=== PATIENT | female | born 1955 | race Caucasian/White ===

== ENCOUNTER 2019-08-07 06:47 | Day surgery (SDC) | payer BC ==
[~2019-08-07 06:47] MED LIST: Midazolam 1 MG/ML 2 ML SDV ONE; fentaNYL 100 MCG/2 ML SDV ONE
[2019-08-07] MEDS ORDERED: fentaNYL 100 MCG/2 ML SDV IV ONE ×3 (06:48→08:26)
[2019-08-07] MEDS ORDERED: Midazolam 1 MG/ML 2 ML SDV IV ONE ×3 (06:48→08:27)
[2019-08-07] MEDS ORDERED: Dextrose 5%-0.45% NaCl 1,000 ML IV SCH (08:00)
[2019-08-07] MEDS ORDERED: Sodium Chloride 0.9% 10 ML Syringe FLUSH PRN (08:00)
--- NOTE | 2019-08-07 14:11 | OR ---
DATE: 08/07/2019 PROCEDURE PERFORMED: Esophagogastroduodenoscopy, NBI, and multiple pinch biopsies. INSTRUMENT USED: [id number]-HQ190 Olympus video panendoscope. PREMEDICATIONS: No oral or topical anesthesia used. Fentanyl 100 mcg intravenous, Versed 2 mg intravenous. The procedure was done under pulse oximetry, BP recording, and registered nurse cardiac telemetry. INDICATION: The patient with previous gastric bypass surgery and persistent upper abdominal symptoms, unexplained, and not responsive to medical measures. Esophagogastroduodenoscopy is performed for detection of any active erosive lesions, Frias esophagus, and/or malignancy also under consideration, H. pylori status to be determined, small bowel biopsies to be obtained for CEA disease if indicated, endoscopic hemostasis therapy if needed. PROCEDURE IN DETAIL: The scope was passed with ease. Adequate visualization of the esophagus was made from proximal to distal areas. No upper esophageal lesions identified. No distal esophageal stricture. No uphill or downhill esophageal varices. No Bev-Bravo tear. No evidence of erosive esophagitis by Metcalfe criteria. No esophageal polyp or tumor mass identified. Z-line was seen at around 32 cm distal to the oral verge. Whitish longitudinal healing exudate could be noted in the esophagus, consistent with esophagitis dissecans superficialis. No proximal gastric varices noted. Gastric fundus examination by retroflexion showed no polypoid lesions. The small gastric pouch was free of ulcer, vascular ectasia, or malignant lesions. Surgical site was found to be unremarkable. Visualized loops of the small bowel were unremarkable. Multiple pinch biopsies, 4 in number, were taken from the duodenum and sent for any histopathologic evidence of celiac disease. Multiple pinch biopsies were also taken from the distal and proximal gastric mucosa and sent for PyloriTek test for H. pylori and histopathology. NBI views were obtained of the distal esophagus, photographs were taken, multiple pinch biopsies were obtained and sent for histopathology. No bleeding was noted from any of the visualized areas at the completion of examination. Photographs were taken of the surgical site, gastric fundus, as well as distal esophagus. IMPRESSION: 1. Status post gastric surgery. 2. Esophagitis desiccans superficialis. The patient tolerated the procedure well. [facility] /[id number]
== END 2019-08-07 10:35 | disposition home or self-care (01) ==
LOC: DL.ENDO 06:47
PROVIDERS: ATTEND Internal Medicine Gastroenterology
DX: K20.8 Other esophagitis (principal); I10 Essential (primary) hypertension; E78.5 Hyperlipidemia, unspecified; Z88.5 Allergy status to narcotic agent; Z88.6 Allergy status to analgesic agent; Z88.8 Allergy status to other drugs, medicaments and biological substances; J30.9 Allergic rhinitis, unspecified; Z98.84 Bariatric surgery status; Z83.71 Family history of colonic polyps
CPT/HCPCS: 43239; 87077; J2250; J3010; J7042

== ENCOUNTER 2019-08-11 05:46 | Day surgery (SDC) | payer BC ==
[2019-08-11] MEDS ORDERED: Midazolam 1 MG/ML 2 ML SDV IV ONE ×4 (05:47→06:59)
[2019-08-11] MEDS ORDERED: fentaNYL 100 MCG/2 ML SDV IV ONE ×3 (05:47→06:57)
[2019-08-11] MEDS ORDERED: Dextrose 5%-0.45% NaCl 1,000 ML IV SCH (06:00)
[2019-08-11] MEDS ORDERED: fentaNYL 100 MCG/2 ML SDV ONE (06:15)
[2019-08-11] MEDS ORDERED: Midazolam 1 MG/ML 2 ML SDV ONE (06:15)
--- NOTE | 2019-08-11 08:41 | OR ---
DATE: 08/11/2019 PROCEDURE: Total colonoscopy, cold snare polypectomy, and hemoclip placement. PREMEDICATIONS: Fentanyl 100 mcg Intravenous, Versed 4 mg intravenous, nasal O2 cannula. The procedure was done under pulse oximetry, BP recording, and site monitor. INDICATION: The patient with chronic constipation. Colonoscopic examination is done for detection of any polypoid lesions and removal, endoscopic hemostasis therapy if needed. DESCRIPTION OF PROCEDURE: Initial rectal exam showed external hemorrhoidal tags. Rigid anoscopy was normal. The colonoscope was passed with ease. Few scattered diverticula were noted, more so in the distal left colon. The scope was passed with ease up to the ileocecal area. Photographs were taken of the normal-appearing cecum, identified by landmarks of appendiceal orifice and double-bulged ileocecal folds. No bleeding was noted from any of the visualized areas at the commencement of the examination. There was some amount of fecal material that had to be aspirated. The bowel preparation was adequate, [place] scale 2 in all the regions. No stricture. No vascular ectasia. No large isolated ulcerations seen. No evidence of diffuse inflammatory bowel disease in the form of friability, contact bleeding, or ulcerations. Probing the proximal sides of folds and flexures, using adequate distention and clearing of the stool material, withdrawal of the scope was made. In the mid descending colon, 5 mm sized benign-appearing polyp was noted, NBI views were obtained, photographs were taken. Cold snare polypectomy was done, the polyp tissue was retrieved and sent for histopathology. Resolution hemoclip was placed at the polypectomy site, photographs were taken. No bleeding was noted from any of the visualized areas at the completion of examination. IMPRESSION: 1. External hemorrhoids. 2. Diverticulosis. 3. Descending colon polyp. The patient tolerated the procedure well. [facility] /[id number]
== END 2019-08-11 09:52 | disposition home or self-care (01) ==
LOC: DL.ENDO 05:46
PROVIDERS: ATTEND Internal Medicine Gastroenterology
DX: D12.4 Benign neoplasm of descending colon (principal); K64.4 Residual hemorrhoidal skin tags; K57.30 Diverticulosis of large intestine without perforation or abscess without bleeding; E78.5 Hyperlipidemia, unspecified; I10 Essential (primary) hypertension; Z98.84 Bariatric surgery status; Z90.49 Acquired absence of other specified parts of digestive tract; Z88.5 Allergy status to narcotic agent; Z88.6 Allergy status to analgesic agent; Z88.8 Allergy status to other drugs, medicaments and biological substances
CPT/HCPCS: 45385; J2250; J3010; J7042

== ENCOUNTER 2022-09-07 06:05 | Day surgery (SDC) | payer MEDICARE, BC ==
[2022-09-07] MEDS ORDERED: fentaNYL 100 MCG/2 ML SDV IV ONE (06:06)
[2022-09-07] MEDS ORDERED: Midazolam 1 MG/ML 2 ML SDV IV ONE (06:06)
[2022-09-07] MEDS ORDERED: Midazolam 1 MG/ML 2 ML SDV ONE (06:20)
[2022-09-07] MEDS ORDERED: fentaNYL 100 MCG/2 ML SDV ONE (06:20)
[2022-09-07] MEDS: Dextrose 5%-0.45% NaCl 1,000 ML IV SCH (06:52)
[2022-09-07] MEDS: fentaNYL 100 MCG/2 ML SDV IV ONE ×2 (07:11→07:12)
[2022-09-07] MEDS: Midazolam 1 MG/ML 2 ML SDV IV ONE ×5 (07:12→07:21)
== END 2022-09-07 09:35 | disposition home or self-care (01) ==
LOC: DL.ENDO 06:05
PROVIDERS: ATTEND Internal Medicine Gastroenterology
DX: Z12.11 Encounter for screening for malignant neoplasm of colon (principal); K57.30 Diverticulosis of large intestine without perforation or abscess without bleeding; I10 Essential (primary) hypertension; E78.5 Hyperlipidemia, unspecified; Z98.890 Other specified postprocedural states; Z86.010 Personal history of colon polyps; Z98.84 Bariatric surgery status; Z90.49 Acquired absence of other specified parts of digestive tract
CPT/HCPCS: G0105; J2250; J3010; J7042